=== PATIENT | female | born 1975 | race Caucasian/White ===

== ENCOUNTER 2017-04-25 21:29 | Emergency (ER) | payer MEDICAID ==
[2017-04-25] MEDS ORDERED: Insulin Regular, Human 100 Units/ML 10 ML Vial SUBCUT ONE (22:48)
--- NOTE | 2017-04-25 22:56 | EDM.PDOC ---
ED HPI GENERAL MEDICAL PROBLEM - General Chief Complaint: Diabetic Complaint Stated Complaint: [facility] OFF [facility] Time Seen by Provider: 04/25/17 22:15 Source of Information: Reports: Patient, Family (Mom) History Limitations: Reports: No Limitations - History of Present Illness INITIAL COMMENTS - FREE TEXT/NARRATIVE: High blood sugars; this is a 41 year old female present to ER with her Parents, reports was seen earlier today for routine labs for diabetes. Got a call this evening at 8pm, told to go to the ER for evaluation. Ms. Marin denies any fever, chills, nausea, vomiting, recent or current illness. denies dysuria, no chest pain or shortness of breath reports COPD, smokes one pack per day. report diabetes, taking Metformin daily, but does drink a lot of sodas, does not monitor her diet. Mom is her [employer] Onset: Unknown/Unsure Improves with: Reports: None Worsens with: Reports: None Associated Symptoms: Reports: No Other Symptoms - Related Data Allergies Allergy/AdvReac Type Severity Reaction Status Date / Time codeine Allergy Other Uncoded 04/25/17 21:55 topamax Allergy Muscle Uncoded 04/25/17 21:55 Weakness Home Meds: Home Meds Aspirin [Adult Low Dose Aspirin EC] 81 mg PO DAILY 04/25/17 [History] ClonazePAM [KlonoPIN] 2 mg PO Q6H PRN 04/25/17 [History] Hydrochlorothiazide [Hydrochlorothiazide] 1 tab PO DAILY 04/25/17 [History] Meloxicam [Meloxicam] 1 tab PO DAILY 04/25/17 [History] Metoprolol Tartrate [Lopressor] 50 mg PO BID 04/25/17 [History] QUEtiapine Fumarate [Quetiapine Fumarate] 800 mg PO BEDTIME 04/25/17 [History] Sertraline [Zoloft] 100 mg PO DAILY 04/25/17 [History] Ziprasidone HCl [Geodon] 80 mg PO BIDMEALS 04/25/17 [History] lamoTRIgine [Lamotrigine] 100 - 200 mg PO BID 04/25/17 [History] metFORMIN HCl [Metformin HCl] 1 tab PO BIDMEALS 04/25/17 [History] Past Medical History Cardiovascular History: Reports: High Cholesterol, Hypertension Respiratory History: Reports: Bronchitis, Recurrent, Pneumonia, Recurrent Gastrointestinal History: Reports: GERD, Inflammatory Bowel Disease [employer] History: Reports: Psychiatric History: Reports: Anxiety, Bipolar, Depression, Schizophrenia, Suicide Attempt Endocrine/Metabolic History: Reports: Diabetes, Type II - Past Surgical History HEENT Surgical History: Reports: Tonsillectomy GI Surgical History: Reports: Cholecystectomy Female Surgical History: Reports: Hysterectomy Musculoskeletal Surgical History: Reports: Other (See Below) Other Musculoskeletal Surgeries/Procedures:: bilat knee surgery Social & Family History - Tobacco Use Smoking Status *Q: Current Every Day Smoker Years of Tobacco use: 26 Packs/Tins Daily: 1 - Caffeine Use Caffeine Use: Reports: Coffee, Soda - Recreational Drug Use Recreational Drug Use: No - Living Situation & Occupation Living situation: Reports: Single Occupation: Disabled (lives with Parents in [facility]) ED ROS GENERAL - Review of Systems Review Of Systems: See Below Constitutional: Reports: No Symptoms HEENT: Reports: No Symptoms Respiratory: Reports: No Symptoms Cardiovascular: Reports: No Symptoms Endocrine: Reports: No Symptoms GI/Abdominal: Reports: No Symptoms : Reports: No Symptoms Musculoskeletal: Reports: No Symptoms Skin: Reports: No Symptoms Neurological: Reports: No Symptoms Psychiatric: Reports: No Symptoms Hematologic/Lymphatic: Reports: No Symptoms Immunologic: Reports: No Symptoms ED EXAM GENERAL NO PERIP PULSE - Physical Exam Exam: See Below Exam Limited By: No Limitations General Appearance: Alert, WD/WN, No Apparent Distress Eye Exam: Bilateral Eye: EOMI, PERRL Ears: Normal External Exam, Normal Canal, Hearing Grossly Normal, Normal TMs Nose: Normal Inspection, Normal Mucosa, No Blood Throat/Mouth: Normal Inspection, Normal Lips, Normal Teeth, Normal Gums, Normal Oropharynx, Normal Voice, No Airway Compromise Head: Atraumatic, Normocephalic Neck: Normal Inspection, Supple, Non-Tender, Full Range of Motion Respiratory/Chest: No Respiratory Distress, No Accessory Muscle Use, Decreased Breath Sounds, Wheezing (bilateral, scattered) Cardiovascular: Regular Rate, Rhythm, No Murmur GI/Abdominal: Normal Bowel Sounds, Soft, Non-Tender (Female) Exam: Deferred Rectal (Female) Exam: Deferred Back Exam: Normal Inspection, Full Range of Motion, NT Extremities: Normal Inspection, Normal Range of Motion, Non-Tender, Normal Capillary Refill, No Pedal Edema Neurological: Alert, Oriented, CN II-XII Intact, Normal Cognition, Normal Gait, Normal Reflexes, No Motor/Sensory Deficits Psychiatric: Normal Affect, Normal Mood Lymphatic: No Adenopathy Course - Vital Signs Last Recorded V/S: Last Vital Signs Temp 37.1 C 04/25/17 21:57 Pulse 109 H 04/25/17 22:32 Resp 16 04/25/17 22:32 BP 140/94 H 04/25/17 22:32 Pulse Ox 93 L 04/25/17 22:32 - Orders/Labs/Meds Labs: Laboratory Tests 04/25/17 04/25/17 04/25/17 Range/Units 22:50 22:50 23:04 WBC 8.8 (4.5-11.0) K/uL RBC 4.60 (3.30-5.50) M/uL Hgb 14.4 (12.0-15.0) g/dL Hct 41.1 (36.0-48.0) % MCV 89 (80-98) fL MCH 31 (27-31) pg MCHC 35 (32-36) % Plt Count 191 (150-400) K/uL Neut % (Auto) 60 (36-66) % Lymph % (Auto) 31 (24-44) % [place] % (Auto) 7 H (2-6) % Eos % (Auto) 2 (2-4) % Baso % (Auto) 0 (0-1) % Sodium 136 L (140-148) mmol/L Potassium 3.8 (3.6-5.2) mmol/L Chloride 95 L (100-108) mmol/L Carbon Dioxide 27 (21-32) mmol/L Anion Gap 17.8 H (5.0-14.0) mmol/L BUN 11 (7-18) mg/dL Creatinine 1.6 H (0.6-1.0) mg/dL Est Cr Clr Drug Dosing 45.84 mL/min Estimated GFR (MDRD) 36 L (>60) Glucose 477 H* (74-106) mg/dL Calcium 8.5 (8.5-10.1) mg/dL Urine Color Yellow Urine Appearance Clear Urine pH 5.0 (4.5-8.0) Ur Specific [place] 1.010 (1.008-1.030) Urine Protein Negative (NEGATIVE) mg/dL Urine Glucose (UA) 1000 H (NEGATIVE) mg/dL Urine Ketones Negative (NEGATIVE) mg/dL Urine Occult Blood Negative (NEGATIVE) Urine Nitrite Negative (NEGATIVE) Urine Bilirubin Negative (NEGATIVE) Urine Urobilinogen Normal (NORMAL) mg/dL Ur Leukocyte Esterase Negative (NEGATIVE) Urine RBC 0-5 (0-5) Urine WBC Not seen (0-5) Ur Epithelial Cells Rare Amorphous Sediment Not seen Urine Bacteria Not seen Urine Mucus Not seen Meds: Medications Discontinued Medications Generic Name Dose Route Start Last Admin Trade Name José PRN Reason Stop Dose Admin Sodium Chloride 1,000 mls @ 999 mls/hr 04/25/17 23:00 04/25/17 23:04 Normal Saline IV 999 mls/hr ASDIRECTED JHONATAN Administration Insulin Human Regular 10 unit 04/25/17 22:48 04/25/17 23:02 Novolin R SUBCUT 04/25/17 22:49 10 unit ONETIME ONE Administration Protocol - Re-Assessments/Exams Free Text/Narrative Re-Assessment/Exam: 04/25/17 22:58 review lab reports from [facility] blood glucose; 695 K+4.1 Na+ 131 CL 93 cr 1.4 gfr 41 anion gap 18 discussed will repeat labs for comparison, IV Normal Saline, Insulin regular 10 units subcut Lab results we urine clear, blood glucose 477 after 10 units of insulin. Patient reports no concerns or complaints. We'll plan to discharge to home advised to follow-up with primary care for recheck tomorrow Departure - Departure Time of Disposition: 00:31 Disposition: Home, Self-Care 01 Condition: Good Clinical Impression: Hyperglycemia - Discharge Information Instructions: Hyperglycemia, Type 2 Diabetes Mellitus, Diagnosis, Adult, Easy- to-Read Referrals: Joanie Flores PA [Primary Care Provider] - Forms: ED Department Discharge Care Plan Goals: Hyperglycemia and diabetes type 2 -Given regular insulin 10 units subcut in ER blood glucose now for 477 -Continue metformin as directed by primary care provider -Drink at least 8-10 glasses of water per day -Avoid sugar drinks, sugary snacks and large meals. -Will need to follow-up with primary care provider to discuss medications and diet modifications Return to clinic or ER if has any fever, chills, nausea, vomiting, diarrhea, or any concerns. - Problem List & Annotations (1) Hyperglycemia SNOMED Code(s): 15329931 Code(s): R73.9 - HYPERGLYCEMIA, UNSPECIFIED Status: Acute Priority: High - Problem List Review Problem List Initiated/Reviewed/Updated: Yes - Assessment/Plan Plan: Hyperglycemia and diabetes type 2 -Given regular insulin 10 units subcut in ER blood glucose now for 477 -Continue metformin as directed by primary care provider -Drink at least 8-10 glasses of water per day -Avoid sugar drinks, sugary snacks and large meals. -Will need to follow-up with primary care provider to discuss medications and diet modifications Return to clinic or ER if has any fever, chills, nausea, vomiting, diarrhea, or any concerns.
[2017-04-25] MEDS ORDERED: Sodium Chloride 0.9% 1,000 ML IV SCH (23:00)
== END 2017-04-26 00:27 | disposition home or self-care (01) ==
LOC: JP.ED 21:29
DX: E11.65 Type 2 diabetes mellitus with hyperglycemia (principal); E78.00 Pure hypercholesterolemia, unspecified; I10 Essential (primary) hypertension; K21.9 Gastro-esophageal reflux disease without esophagitis; F17.210 Nicotine dependence, cigarettes, uncomplicated; Z88.5 Allergy status to narcotic agent; Z88.8 Allergy status to other drugs, medicaments and biological substances; Z79.82 Long term (current) use of aspirin; Z79.899 Other long term (current) drug therapy
CPT/HCPCS: 36415; 80048; 81001; 85025; 96372; 99285-25; A9270-GY; J7040